=== PATIENT | male | born 1960 | race Caucasian/White ===

== ENCOUNTER 2022-08-11 08:26 | Day surgery (SDC) | payer BC ==
[2022-08-07 16:10] VITALS: BMI 47.1
[2022-08-11] MEDS ORDERED: ONDANSETRON 4 MG/2 ML VIAL IVPUSH PRN (08:36)
[2022-08-11] MEDS ORDERED: LACTATED RINGERS SOLUTION 1,000 ML IV SCH (08:45)
[2022-08-11] MEDS ORDERED: BUPIVACAINE HCL/EPINEPHRINE/PF 30 ML VIAL IJ ONE (09:05)
[2022-08-11] MEDS ORDERED: EPINEPHrine 1:1,000 1,000 MCG/ML ML ONE (09:05)
[2022-08-11] MEDS ORDERED: BUPIVACAINE HCL/PF 2.5 MG/ML - 30 ML VIAL IJ ONE (10:12)
[2022-08-11] MEDS ORDERED: MIDAZOLAM HCL 2 MG/2 ML SINGLE DOSE VIAL ONE (10:18)
[2022-08-11] MEDS ORDERED: PROPOFOL 40 ML ONE (10:18)
[2022-08-11] MEDS ORDERED: LIDOCAINE HCL/PF 2% SDV 5ML VIAL ONE (10:18)
[2022-08-11] MEDS ORDERED: ONDANSETRON 4 MG/2 ML VIAL ONE ×2 (10:22→11:25)
[2022-08-11] MEDS ORDERED: DEXAMETHASONE SOD PHOSPHATE 4 MG/1 ML VIAL ONE ×2 (10:22)
[2022-08-11] MEDS ORDERED: DESFLURANE GAS 240 ML BOTTLE IH ONE (10:22)
[2022-08-11] MEDS ORDERED: ceFAZolin SODIUM 1 GM VIAL ONE ×2 (10:22)
[2022-08-11] MEDS ORDERED: PROPOFOL 20 ML ONE (10:57)
[2022-08-11] MEDS ORDERED: oxyCODONE HCL 5 MG TABLET PO ONE (11:43)
[2022-08-11 12:24] VITALS: RESP 16; TEMP 97.9
[2022-08-11 12:50] VITALS: BP 142/75; PULSE 73
== END 2022-08-11 13:00 | disposition home or self-care (01) ==
LOC: FASU 08:26
PROVIDERS: ATTEND Orthopaedic Surgery
PROC: 0SBD4ZZ Excision of Left Knee Joint, Percutaneous Endoscopic Approach (ICD-10-PCS; 2022-08-11)
PROC: 0SBD4ZZ Excision of Left Knee Joint, Percutaneous Endoscopic Approach (ICD-10-PCS; principal; 2022-08-11 11:02)
DX: S83.242A Other tear of medial meniscus, current injury, left knee, initial encounter (principal); M23.8X2 Other internal derangements of left knee; S83.8X2A Sprain of other specified parts of left knee, initial encounter; M65.862 Other synovitis and tenosynovitis, left lower leg; X58.XXXA Exposure to other specified factors, initial encounter; Y93.9 Activity, unspecified; Y92.9 Unspecified place or not applicable
CPT/HCPCS: 94760